=== PATIENT | female | born 1975 | race Two or more races ===

== ENCOUNTER 2023-06-11 05:30 | Day surgery (SDC) | payer OTHER | END 2023-06-11 18:25 | disposition home or self-care (01) | LOC: CIR.AMB 05:30 | PROVIDERS: ATTEND Colon & Rectal Surgery | DX: K60.1 Chronic anal fissure (principal); D37.8 Neoplasm of uncertain behavior of other specified digestive organs; Z91.041 Radiographic dye allergy status; Z88.6 Allergy status to analgesic agent; Z20.822 Contact with and (suspected) exposure to COVID-19 ==